=== PATIENT | male | born 1975 | race Caucasian/White ===

== ENCOUNTER 2018-09-15 00:42 | Inpatient (IN) | payer MEDICARE, MEDICAID ==
[~2018-09-15] VITALS: Ht 175.3 cm; Wt 104.8 kg
[~2018-09-15 00:42] MED LIST: CHOLESTYRAMINE378 GM PO; COZAAR100 MG PO; FLUOCINOLO0.01 %/15 TOP; ZOCOR20 MG PO; ZOFRAN ODT4 M1 PO; ZYLOPRIM300 MG PO; ZYRTEC10 M5 PO
[2018-09-15 01:17] VITALS: BP 140/94
[2018-09-15] MEDS ORDERED: ONDANSETRON ODT8 MG PO (01:24)
[2018-09-15] MEDS ORDERED: TOPROL XL25 MG PO (01:25)
[2018-09-15] MEDS ORDERED: NIFEDIPINE ER60 M1 PO (01:25)
[2018-09-15] MEDS ORDERED: MEDROLDOSEPACK PO (01:26)
[2018-09-15] MEDS ORDERED: ZPAK PO (01:26)
[2018-09-15] MEDS ORDERED: OMEPRAZOLE40 MG PO (01:27)
[2018-09-15 01:31] LABS: HEMATOCRIT 49.8 % (42.0-52.0); HEMOGLOBIN 17.2 gm/dL (14.0-18.0); MCH 32.6 pg (26.0-34.0); MCHC 34.5 g/dL (28.0-37.0); MCV 94.6 fL (80.0-100.0); MPV 7.8 fl. (7.2-11.1); NUCLEATED RBCS 0 /100WBC; PLATELET COUNT* 224 thou/uL (150-400); RBC 5.27 mil/uL (4.50-6.00); RDW-CV 13.9 % (10.5-14.5)
[2018-09-15 01:41] LABS: CREATININE 1.3 mg/dL (0.6-1.3); POTASSIUM 3.8 mmol/L (3.5-5.1)
[2018-09-15 01:45] LABS: ALBUMIN 4.2 g/dL (3.4-5.0); TOTAL BILIRUBIN 0.8 mg/dL (<0.1-1.0); TOTAL PROTEIN 7.8 g/dL (6.4-8.2)
[2018-09-15 01:50] LABS: ABSOLUTE LYMPHOCYTES 0.7 thou/uL (0.8-5.3); ABSOLUTE MONOCYTES 0.4 thou/uL (0.0-1.2); ABSOLUTE NEUTROPHILS 12.9 thou/uL (1.6-8.1); PLATELET ESTIMATE ADEQUATE
[2018-09-15 01:59] LABS: URINE BILIRUBIN NEGATIVE (Negative); URINE BLOOD TRACE (Negative); URINE CLARITY CLEAR; URINE COLOR YELLOW; URINE GLUCOSE-RANDOM NEGATIVE (Negative); URINE KETONES TRACE (Negative); URINE LEUKOCYTES-REFLEX NEGATIVE (Negative); URINE NITRITE-REFLEX NEGATIVE (Negative); URINE PROTEIN 1+ (Negative); URINE SPECIFIC GRAVITY 1.025 (1.005-1.030); URINE UROBILINOGEN 0.2 E.U./dl (0.2-1.0)
[2018-09-15 05:25] VITALS: BP 144/96
[2018-09-15 06:35] VITALS: BP 135/96
--- NOTE | 2018-09-15 07:47 | NUR ---
PATIENT ADMITTED TO ROOM 108 ON UNIT AT APPROXIMATELY 0515. PATIENTS MOTHER AT BEDSIDE HELPING TO ANSWER QUESTIONS FOR ADMISSION. PATIENT HAS EXPRESSIVE APHASIA AND HAS DIFFICULTY WITH COMMUNICATION. PATIENTS MOTHER STATED THAT PATIENT USES BRAIL AND TACTILE SIGN LANGUAGE TO COMMUNICATE. PATIENT AND MOTHER WERE ORIENTED TO ROOM AND STAFF. FALL EDUCATION GIVEN AND FALL AGREEMENT SIGNED. ADMISSION AND ASSESSMENT CHARTED. VSS ON RA. PAIN CONTROLLED AT THIS TIME D/T RECEIVING MEDICATION IN ER. PATIENT HAS HAD SOME SLIGHT NAUSEA BUT NO EMESIS. PATIENT URINATING USING URINAL AND ALSO ASSISTED X 1 TO THE BATHROOM. PATIENT IS NPO AT THIS TIME AND SURGERY HAS BEEN CONSULTED IN ER. IV IN RIGHT AC-NS @ 100ML/HR. COTTON BALL TAPED TO CALL LIGHT BUTTON TO ASSIST WHEN NEEDING TO USE CALL LIGHT. FALL PRECAUTIONS IN PLACE AND HOURLY ROUNDS MADE. WILL CONTINUE WITH PLAN OF CARE AND NURSING TO MONITOR.
[2018-09-15 10:30] VITALS: BP 142/100
--- NOTE | 2018-09-15 11:30 | NUR ---
SPOKE WITH PT.AND FATHER. PT.UP IN CHAIR. KEPT DOZING OFF DURING CONVERSATION. PT.IS BOTH DEAF AND BLIND. HE CAN HEAR A LITTLE OUT OF HIS R EAR AND WEARS A HEARING AID. HE LIVES ALONE. FATHER SAID HE HAS SINCE AGE 18. PT. BEGAN TO LOSE SIGHT AT AGE 8 AND WAS BORN HEARING IMPAIRED. HE IS VERY INDEPENDENT. DOES BASICALLY EVERYHTING BUT DRIVE. HIS PARENTS TAKE HIM SHOPPING. HE HAS AN I PHONE THAT IS BLUE TOOTH COMPATIBLE WITH A DEVICE HE WEARS ON HIS WAIST. ALBERTO COMES ACROSS IT TO READ HIS MESSAGES AND IT HAS PATTERSON BOARD FOR HIM TO TYPE HIS RESPONSE. HE GIVES MOTIVATIONAL TALKS ABOUT HIS DISABILITIES AND HOW HE CAN DO ANYTHING SO OTHERS CAN SO TOO IF THEY SET THEIR MINDS TO IT. HE CALLS THE BAD THINGS THAT HAVE HAPPENED TO HIM IN LIFE- SHARKS. HIS TALKS ARE CALLED SWIMMING WITH THE SHARKS. HE DOES SIGN LANGUAGE AND HAS AN RN PRIOR AUTHORIZATION TO DO THE TALKNG FOR HIS TALKS. HE HAS RECENTLY BECAME THE FIRST PERSON QUALIFIED FOR ASSISTANCE BEING BLIND AND DEAF. BEFORE IF YOU WERE BLIND AND DEAF, YOU HAD TO HAVE A MENTAL DISABLITY ALSO. HE SHOULD BE ABLE TO GET ASSISTANCE OF AN AIDE TO ASSIST HIM WITH ERRANDS,APPTS.,ETC. FATHER COULD NOT THINK OF ANYTHING CM COULD PROVIDE TO ASSIST PT. HE SAID PTS MOM WILL BE BRINGING IN HIS PHONE TODAY. CM WILL FOLLOW.
[2018-09-15 15:35] VITALS: BP 138/85
--- NOTE | 2018-09-15 18:12 | NUR ---
PATIENT REMAINED ALERT AND ORIENTED X'S 4. VITAL SIGNS AND SPO2 STABLE. IV CLEAN, FLUIDS INFUSING. PAIN WELL CONTROLLED WITH PAIN MEDS. HAD BOUTS OF NAUSEA, ZOFRAN DID NOT WORKING, GOT IV PHENERGRAN, NAUSEA SUBSIDED, HAS NOT HAD A BOUT OF NAUSEA SINCE PHENERGREN GIVEN. HAVING HICCUPS. VOIDED WITHOUT ISSUE. COMPLETED HOURLY ROUDNING. CALL LIGHT WITHIN REACH.
[2018-09-15 20:00] VITALS: BP 141/91
[2018-09-16] VITALS: BP 151/103
[2018-09-16 04:00] VITALS: BP 120/80
--- NOTE | 2018-09-16 06:48 | NUR ---
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 He has abdominal pain that he rates a 10 mike times. His mom is at the bedside and helps with his communication. He does have some hearing in his right ear and he wears a hearing aide. He's had fentanyl 100 mcg x 3 this shift for the abdominal pain. His abdomen is distended and is hyperactive/tympanic. He is passing gas this shift and has voided large amounts. Mom said he had diarrhea on Wednesday. He states pain is more on his rt side and his ribs. BP has been elevated r/t pain. Roomair sat has been 91-94%. Nausea x 1. He is sleeping in recliner this shift.
[2018-09-16 09:20] VITALS: BP 127/82
[2018-09-16 13:58] LABS: CALCIUM 8.5 mg/dL (8.5-10.1); CREATININE 1.3 mg/dL (0.6-1.3); MAGNESIUM 1.7 mg/dL (1.8-2.4); PHOSPHORUS* 2.9 mg/dL (2.5-4.9); POTASSIUM 3.5 mmol/L (3.5-5.1)
[2018-09-16 17:03] VITALS: BP 115/70
--- NOTE | 2018-09-16 18:32 | NUR ---
ASSUMED CARE OF PATIENT AT APPROX 0730. ALERT AND ORIENTED X4. ASSESSMENT COMPLETED AND CHARTED. VSS ON ROOM AIR. PATIENT HAD COMPLAINTS OF ABDOMINAL PAIN EARLY IN THE SHIFT, GAVE IV PAIN MEDICATION WITH PARTIAL RELIEF. NG TUBE ORDERED AND PLACED, SET ON LOW INTERMITTENT SUCTION WITH 625 OUTPUT BY END OF SHIFT. PATIENT STATES THAT HIS ABDOMINAL PAIN IS BETTER NOW. FLUIDS INFUSED ORDERED. MAG INFUSING ORDERED. FALL PRECAUTIONS IN PLACE. HOURLY ROUNDS COMPLETED. NURSING WILL CONTINUE TO MONITOR.
[2018-09-16 20:00] VITALS: BP 116/61
[2018-09-17 04:06] LABS: ABSOLUTE BASOPHILS 0.1 thou/uL (0.0-0.2); ABSOLUTE EOSINOPHILS 0.1 thou/uL (0.0-0.7); ABSOLUTE LYMPHOCYTES 1.8 thou/uL (0.8-5.3); ABSOLUTE NEUTROPHILS 10.8 thou/uL (1.6-8.1); BASOPHILS 0.7 %; EOSINOPHILS 0.7 %; HEMATOCRIT 49.9 % (42.0-52.0); HEMOGLOBIN 16.9 gm/dL (14.0-18.0); LYMPHOCYTES 13.1 %; MCH 32.2 pg (26.0-34.0); MCHC 33.8 g/dL (28.0-37.0); MCV 95.1 fL (80.0-100.0); MONOCYTES 7.3 %; MPV 8.2 fl. (7.2-11.1); NUCLEATED RBCS 0 /100WBC; PLATELET COUNT* 184 thou/uL (150-400); POLYS 78.2 %; RBC 5.24 mil/uL (4.50-6.00); WBC 13.8 thou/uL (4.0-11.0)
[2018-09-17 04:17] LABS: CALCIUM 8.7 mg/dL (8.5-10.1); CREATININE 1.4 mg/dL (0.6-1.3); POTASSIUM 3.5 mmol/L (3.5-5.1)
--- NOTE | 2018-09-17 06:12 | NUR ---
ASSUMED PATIENT CARE AT 1900. PATIENT ALERT AND ORIENTED TIMES FOUR. NG IN PLACE TO CONTINUOUS SUCTION. 1400 OUT SINCE TUBE PUT IN. PATIENT HAD A SMALL SEMI-FORMED BM THIS AM. IV REMAINS PATENT. MINOR DISCOMFORT NOTED IN ABDOMINAL AREA. HEATING PAD IN PLACE. MOTHER AT BEDSIDE THROUGH THE NIGHT. HELPS STAFF WITH INTERPRETING PATIENTS SPEECH HE IS MOSTLY DEAF AND DOES NOT ALWAYS FORM WORDS PROPERLY. HOURLY ROUNDING AND SALICYLIC ACID BLENDER COMPLETED DOCUMENTED
[2018-09-17 08:15] VITALS: BP 123/84
--- NOTE | 2018-09-17 17:21 | NUR ---
PATIENT REMAINED ALERT AND ORIENTED X'S 4. VITAL SIGNS AND SPO2 STABLE. IV CLEAN, FLUIDS INFUSING. NG CLAMPED, NO NAUSEA OR VOMITING. TOLERATED DIET. PATIENT GIVEN ENEMA, VERY SMALL AMOUNT OF STOOL OUT. ABDOMEN MUCH SOFTER AND LESS DISTENEDED THAN PREVIOUSLY. PATIENT GIVEN BED BATH. PAIN WELL CONTROLLED WITH PAIN MEDS. ALL MORNING MEDS SKIPPED DUE TO PATIENT BEING NPO. COMPLETED HOURLY ROUNDING. CALL LIGHT WITHIN REACH. WILL CONTINUE TO MONITOR.
[2018-09-17 21:14] VITALS: BP 134/82
[2018-09-18 03:50] LABS: HEMATOCRIT 42.5 % (42.0-52.0); MCH 32.7 pg (26.0-34.0); MCHC 34.1 g/dL (28.0-37.0); MCV 95.8 fL (80.0-100.0); MPV 8.1 fl. (7.2-11.1); RBC 4.44 mil/uL (4.50-6.00); RDW-CV 13.9 % (10.5-14.5); WBC 8.9 thou/uL (4.0-11.0)
[2018-09-18 04:10] LABS: HEMOGLOBIN 14.5 gm/dL (14.0-18.0)
[2018-09-18 04:15] LABS: CALCIUM 7.7 mg/dL (8.5-10.1); CREATININE 1.2 mg/dL (0.6-1.3); POTASSIUM 3.2 mmol/L (3.5-5.1)
--- NOTE | 2018-09-18 05:20 | NUR ---
ASSUMED CARE OF PATEINT AT APPROX 1930. ALERT AND OREINTED X4. ASSESSMENT COMPLETED AND CHARTED. VSS ON ROOM AIR. NO COMPLAINTS OF PAIN, NAUSEA, OR SOA. NG REMAINS IN PLACE AND CLAMPED. FLUIDS INFUSED ORDERED. TOLERATING CLEAR LIQUID DIET. UP WIHT SBA TO BEDSIDE COMMODE. SLEPT COMFORTABLY THROUGHOUT THE NIGHT. FALL PRECAUTIONS IN PLACE. CALL LIGHT WITHIN REACH AND USES APPROPRIATELY. FAMILY AT BEDSIDE THROUGHOUT THE NIGHT. HOURLY ROUNDS COMPLETED. NURSING WILL CONTINUE TO MONITOR.
[2018-09-18 08:30] VITALS: BP 143/72
--- NOTE | 2018-09-18 17:35 | NUR ---
PATIENT REMAINED ALERT AND ORIENTED X'S 4. VITAL SIGNS AND SPO2 STABLE. NG TUBE REMOVED. TOLERATED DIET, NO NAUSEA AND VOMITING. PATIENT DRINKING LOTS OF WATER WITHOUT ISSUE. VOIDED AND PASSED BM. K+ WAS LOW, GAVE REPLACEMENT, K+ NOW AT 3.4. GAVE ONE MORE ROUND OF REPLACEMENT BUT HAS NOT HAD A LAB REDRAW YET. PATIENT HAS DENIED PAIN THROUGHOUT SHIFT. COMPLETED HOURLY ROUNDING. CALL LIGHT WITHIN REACH. WILL CONTINUE TO MONITOR.
[2018-09-18 19:50] VITALS: BP 124/74
--- NOTE | 2018-09-19 05:02 | NUR ---
ASSUMED CARE OF PATIENT AT APPROX 1930. ALERT AND ORIENTED X4. ASSESSMENT COMPLETED AND CHARTED. NO COMPLAINTS OF PAIN, NAUSEA, OR SOA. PATEINT TOLERATING LIQUID DIET, HAVING STOOLS AND PASSING GAS. PATIENT UP SBA TO COMMODE. OBSERVED SLEEPING COMFORTABLY IN THE CHAIR ON HOURLY ROUNDS. CALL IGHT WITHIN REACH AND FAMILY ASSISTS WITH CALLING FOR NEEDS. FALL PRECAUTIONS IN PLACE. NURSING WILL CONTINUE TO MONITOR.
[2018-09-19 08:00] VITALS: BP 136/84
--- NOTE | 2018-09-19 14:40 | NUR ---
PT ALERT AND ORIENTED. MOTHER @ BEDSIDE. HR BRADYCARDIC @ 42. COZAAR, METOPROLOL, AND LOSARTIN HELD. PHYSICIAN NOTIFIED. RECEIVED ORDERS TO GIVE LOSARTIN. DENIES NAUSEA AND PAIN. NURSING TO CONTINUE TO MONITOR.
[2018-09-19 15:21] VITALS: BP 136/84
--- NOTE | 2018-09-19 15:47 | EKG ---
[place] [address] ELECTROCARDIOGRAM REPORT Name: HOLLI ALMONTE Room: [address] ADM IN .R.#: [id number] Admission: 09/15/18 Attend Phys: Salome Rocha MD Discharge: Date of : 71 Report #: [id number] THIS REPORT FOR: //name// [facility] Test Date: 2018-09-19 Test Time: 09:34:57 Pat Name: HOLLI ALMONTE Department: Room: [address] Gender: M Student Dean: : 1975 Requested By: Mino Posada Order Number: [id number] Sharan MD: Gary Fournier Measurements Intervals [place] Rate: 39 P: -2 ND: 152 QRS: 74 QRSD: 96 T: 85 QT: 479 QTc: 386 Interpretive Statements Sinus bradycardia Low voltage, extremity leads No previous ECG available for comparison Electronically Signed On 09-19-2018 15:47:23 EDGE PLUGGER by Gary Fournier [email or web address] <ELECTRONICALLY SIGNED> By: Gary Fournier MD, [facility] 09/19/18 1547 0934 3 Gary Fournier MD, FACC /EPI
--- NOTE | 2018-09-19 16:12 | NUR ---
PT WAS SEEN BY CARDIOLOGY AND APPROVED DISCHARGE. DISCHARGE INSTRUCTIONS GIVEN TO PATIENT AND PARENTS AT BEDSIDE. IV REMOVED. PT NOTED TO HAVE BOWEL MOVEMENT TODAY. PT LEFT BY WHEEL CHAIR WITH PERSONAL BELONGINGS TO LEAVE WITH PARENTS BY PRIVATE CAR @ 7718.
--- NOTE | 2018-09-20 08:09 | CON ---
[address] [address] CONSULTATION Name: HOLLI ALMONTE Room: [address] IN M.R.#: [id number] Admission: 09/15/18 Attend Phys: Salome Rocha MD Discharge: 09/19/18 Date of : 71 Report #: [id number] THIS REPORT FOR: //name// CC: HENRIK Rocha Physician staff DATE OF SERVICE: 09/19/2018 HISTORY OF PRESENT ILLNESS: The patient is a 43-year-old white male who I was asked to see in the hospital today after he was noted to be bradycardic. The history is obtained from the chart as well as the patient's father, who is present. 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 He is able to ambulate. He actually wrestled in high school. He has been blind since he was 8 years old. He has multiple medical issues. He is able to ambulate with a cane. He lives by himself. 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 He presented here to the Emergency Room 5 days ago with nausea and vomiting and abdominal pain. He was felt to be having evidence of an acute abdomen. He was found to have evidence of partial small-bowel obstruction. The symptoms resolved. He is now being advanced to full liquids. He was noted to be bradycardic. Cardiology consultation was requested. According to the father, there has been no history of heart problems. He denies being told he had a heart murmur or slow heart rate in the past. He has had no recent lightheadedness, shortness of breath, syncope. PAST MEDICAL HISTORY: He has had previous cholecystectomy, back surgery, cataract extraction. Apparently, in [place] in the past he had pneumonia and had a lung biopsy for possible lung cancer that turned out not to be cancer. He does have a history of high blood pressure. No history of diabetes. MEDICATIONS ON ADMISSION: Included metoprolol, losartan, aspirin. 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 FAMILY HISTORY: His father had coronary artery bypass surgery. SOCIAL HISTORY: He is single. Lives in [place], [place]. No smoking or alcohol abuse. REVIEW OF SYSTEMS: He has no history of stroke, asthma, peptic ulcer disease, liver disease. He had chronic kidney disease, no cancer. No psychiatric illness. No chronic skin condition. PHYSICAL EXAMINATION: GENERAL: Revealed a young white male lying in bed. He appeared in no distress. VITAL SIGNS: Currently, has a blood pressure 130/80, pulse is 50[place] [address] CONSULTATION Name: HOLLI ALMONTE Room: [address]#: [id number] Admission: 09/15/18 Attend Phys: Salome Rocha MD Discharge: 09/19/18 Date of : 71 Report #: [id number] afebrile. HEENT: He is anicteric. Conjunctivae pink. Mucous membranes moist. NECK: Veins do not appear distended. No carotid bruits. Neck supple. CHEST: Clear to auscultation. CARDIAC: Regular bradycardia, no significant murmur. ABDOMEN: Soft. EXTREMITIES: No edema. SKIN: Warm and dry. NEUROLOGIC: Nonfocal. LABORATORY DATA: His ECG on admission from 09/19/2018 showed severe sinus bradycardia at 40 beats per minute, low voltage, no significant ST or T-wave changes. His workup so far, he actually had lab work, sodium 146, creatinine 1.2, potassium 3.4, on admission potassium was 3.7. Liver function studies: Alkaline phosphatase 122. White blood cell count 8.9, hemoglobin 14.5. IMPRESSION AND RECOMMENDATIONS: 1. Sinus bradycardia. Asymptomatic. I would not treat. At this time, I would discontinue metoprolol and continue losartan by itself for hypertension. I would consider checking thyroid function studies. 2. Legally blind. 3. Deaf. 4. Partial small-bowel obstruction. Appears to have resolved. <ELECTRONICALLY SIGNED> By: Gary Fournier MD, FACC 09/20/18 0809 1444 [email or web address] Fournier MD, FACC /nt
== END 2018-09-19 15:48 | disposition home or self-care (01) | DRG 388 ==
LOC: M.ERS 00:42 → M.ORTHSURG 03:55 → M.TBA-ER 03:55 → M.ORTHSURG 05:09
PROVIDERS: Emergency Medicine; Internal Medicine; Surgery; ADMIT Internal Medicine
PROC: 0D9670Z Drainage of Stomach with Drainage Device, Via Natural or Artificial Opening (ICD-10-PCS; principal; 2018-09-16)
DX: K56.600 Partial intestinal obstruction, unspecified as to cause (principal); R65.11 Systemic inflammatory response syndrome (SIRS) of non-infectious origin with acute organ dysfunction; N17.9 Acute kidney failure, unspecified; Q87.89 Other specified congenital malformation syndromes, not elsewhere classified; H54.8 Legal blindness, as defined in USA; H91.90 Unspecified hearing loss, unspecified ear; E83.42 Hypomagnesemia; N18.1 Chronic kidney disease, stage 1; R00.1 Bradycardia, unspecified; H35.52 Pigmentary retinal dystrophy; E87.6 Hypokalemia; Z79.899 Other long term (current) drug therapy; Z90.49 Acquired absence of other specified parts of digestive tract; Q16.5 Congenital malformation of inner ear; Z88.5 Allergy status to narcotic agent; Z82.49 Family history of ischemic heart disease and other diseases of the circulatory system

== ENCOUNTER 2020-06-02 14:35 | Inpatient (IN) | payer MEDICARE, MEDICAID ==
[~2020-06-02] VITALS: Ht 175.3 cm; Wt 103.9 kg
[~2020-06-02 14:35] MED LIST changes: +MEDROLDOSEPACK PO; +NIFEDIPINE ER30 MG PO; +OMEPRAZOLE40 MG PO; +ONDANSETRON ODT8 MG PO; +TOPROL XL25 MG PO; +ZPAK PO
[2020-06-02 14:40] VITALS: BP 141/97
[2020-06-02] MEDS ORDERED: NORCO 5-325 TA1 EAC2 PO (14:47)
[2020-06-02] MEDS ORDERED: BENICAR20 MG PO (14:48)
[2020-06-02] MEDS ORDERED: OMEPRAZOLE40 MG PO (14:48)
[2020-06-02] MEDS ORDERED: CALCITRIOL0.25 MCG PO (14:49)
[2020-06-02] MEDS ORDERED: NIFEDIPINE ER30 MG PO (14:49)
[2020-06-02] MEDS ORDERED: CRESTOR5 MG PO (14:49)
[2020-06-02] MEDS ORDERED: AUGMENTIN 875-1 EACH PO (14:57)
[2020-06-02 14:59] LABS: HEMATOCRIT 53.9 % (42.0-52.0); HEMOGLOBIN 18.5 gm/dL (14.0-18.0); MCH 31.9 pg (26.0-34.0); MCHC 34.3 g/dL (28.0-37.0); MCV 92.9 fL (80.0-100.0); MPV 8.6 fl. (7.2-11.1); NUCLEATED RBCS 0 /100WBC; PLATELET COUNT* 213 thou/uL (150-400); RBC 5.81 mil/uL (4.50-6.00); RDW-CV 14.3 % (10.5-14.5); WBC 17.3 thou/uL (4.0-11.0)
[2020-06-02 15:03] LABS: CALCIUM 9.4 mg/dL (8.5-10.1); CREATININE 1.4 mg/dL (0.6-1.3); POTASSIUM 4.6 mmol/L (3.5-5.1)
[2020-06-02 15:07] LABS: ALBUMIN 4.4 g/dL (3.4-5.0); TOTAL BILIRUBIN 0.8 mg/dL (<0.1-1.0); TOTAL PROTEIN 8.2 g/dL (6.4-8.2)
[2020-06-02 15:30] LABS: ABSOLUTE LYMPHOCYTES 0.9 thou/uL (0.8-5.3); ABSOLUTE MONOCYTES 0.3 thou/uL (0.0-1.2); ABSOLUTE NEUTROPHILS 16.1 thou/uL (1.6-8.1); PLATELET ESTIMATE ADEQUATE
[2020-06-02 15:37] LABS: URINE BILIRUBIN NEGATIVE (Negative); URINE BLOOD TRACE (Negative); URINE CLARITY CLEAR; URINE COLOR YELLOW; URINE GLUCOSE-RANDOM NEGATIVE (Negative); URINE KETONES TRACE (Negative); URINE LEUKOCYTES-REFLEX NEGATIVE (Negative); URINE NITRITE-REFLEX NEGATIVE (Negative); URINE PROTEIN 1+ (Negative); URINE SPECIFIC GRAVITY 1.025 (1.005-1.030); URINE UROBILINOGEN 0.2 E.U./dl (0.2-1.0)
[2020-06-02 17:37] VITALS: BP 146/91
[2020-06-02] MEDS ORDERED: ZYRTEC10 M5 PO (18:15)
[2020-06-02 19:54] VITALS: BP 145/88
[2020-06-02 22:18] VITALS: BP 142/97
[2020-06-03] VITALS: BP 149/98
[2020-06-03 04:00] VITALS: BP 130/89
[2020-06-03 08:00] VITALS: BP 143/84
--- NOTE | 2020-06-03 09:37 | EKG ---
[place] [address] ELECTROCARDIOGRAM REPORT Name: HOLLI ALMONTE Room: [address] ADM IN .R.#: [id number] Admission: 06/02/20 Attend Phys: Ky Powell Discharge: Date of : 71 Date of Service: 06/02/20 1455 Report #: [id number] THIS REPORT FOR: //name// [facility] ED Test Date: 2020-06-02 Test Time: 14:55:39 Pat Name: HOLLI ALMONTE Department: Room: [facility] Gender: M Lsw: : 1975 Requested By: Mandy Luong Order Number: [id number] MD: Gary Fournier Measurements Intervals [place] Rate: 90 P: 39 [place]: 169 QRS: 165 QRSD: 88 T: 39 QT: 377 QTc: 462 Interpretive Statements Sinus rhythm Left posterior fascicular block Low voltage, extremity leads Consider anterior infarct Baseline wander in lead(s) I,II,aVR,aVF Compared to ECG 09/19/2018 09:34:57 Sinus bradycardia no longer present Electronically Signed On 06-03-2020 9:37:02 CDT by Gary Fournier [email or web address] <ELECTRONICALLY SIGNED> By: Gary Fournier MD, FACC 06/03/20 0937 1455 1455 Gary Fournier MD, FAC /EPI
[2020-06-03 12:36] VITALS: BP 127/83
[2020-06-03 17:09] VITALS: BP 146/90
[2020-06-03 20:00] VITALS: BP 131/76
[2020-06-04] VITALS: BP 126/69
[2020-06-04 04:00] VITALS: BP 124/75
[2020-06-04 08:00] VITALS: BP 146/81
[2020-06-04 12:24] VITALS: BP 144/87
[2020-06-04 16:25] VITALS: BP 146/78
[2020-06-04 19:30] VITALS: BP 139/78
[2020-06-05] VITALS: BP 135/77
[2020-06-05 04:00] VITALS: BP 141/78
[2020-06-05 05:08] LABS: ABSOLUTE EOSINOPHILS 0.3 thou/uL (0.0-0.7); ABSOLUTE LYMPHOCYTES 1.8 thou/uL (0.8-5.3); ABSOLUTE MONOCYTES 0.5 thou/uL (0.0-1.2); ABSOLUTE NEUTROPHILS 5.8 thou/uL (1.6-8.1); BASOPHILS 0.6 %; EOSINOPHILS 3.3 %; HEMATOCRIT 40.9 % (42.0-52.0); LYMPHOCYTES 21.4 %; MCH 32.1 pg (26.0-34.0); MCHC 35.2 g/dL (28.0-37.0); MCV 91.1 fL (80.0-100.0); MONOCYTES 6.2 %; MPV 8.5 fl. (7.2-11.1); NUCLEATED RBCS 0 /100WBC; PLATELET COUNT* 158 thou/uL (150-400); POLYS 68.5 %; RBC 4.49 mil/uL (4.50-6.00); RDW-CV 14.1 % (10.5-14.5); WBC 8.4 thou/uL (4.0-11.0)
[2020-06-05 05:19] LABS: HEMOGLOBIN 14.4 gm/dL (14.0-18.0)
[2020-06-05 05:33] LABS: ALBUMIN 3.3 g/dL (3.4-5.0); CALCIUM 8.4 mg/dL (8.5-10.1); CREATININE 1.3 mg/dL (0.6-1.3); MAGNESIUM 1.7 mg/dL (1.8-2.4); POTASSIUM 3.2 mmol/L (3.5-5.1); TOTAL PROTEIN 6.2 g/dL (6.4-8.2)
[2020-06-05 08:00] VITALS: BP 151/87
[2020-06-05] MEDS ORDERED: CEFDINIR300 MG PO (09:12)
[2020-06-05 12:00] VITALS: BP 162/82
[2020-06-05 17:43] VITALS: BP 162/82
[2020-06-05 18:00] VITALS: BP 140/81
== END 2020-06-05 18:20 | disposition home or self-care (01) | DRG 871 ==
LOC: M.ERS 14:35 → M.TBA-ER 16:39 → M.2W 16:39
PROVIDERS: Physician Assistant; ADMIT Internal Medicine; ATTEND Internal Medicine
PROC: 0D9670Z Drainage of Stomach with Drainage Device, Via Natural or Artificial Opening (ICD-10-PCS; principal; 2020-06-04)
DX: A41.9 Sepsis, unspecified organism (principal); N17.0 Acute kidney failure with tubular necrosis; Q87.89 Other specified congenital malformation syndromes, not elsewhere classified; K56.609 Unspecified intestinal obstruction, unspecified as to partial versus complete obstruction; M10.9 Gout, unspecified; I12.9 Hypertensive chronic kidney disease with stage 1 through stage 4 chronic kidney disease, or unspecified chronic kidney disease; N18.30 Chronic kidney disease, stage 3 unspecified; K21.9 Gastro-esophageal reflux disease without esophagitis; E86.0 Dehydration; K52.9 Noninfective gastroenteritis and colitis, unspecified; M81.0 Age-related osteoporosis without current pathological fracture; Z20.828 Contact with and (suspected) exposure to other viral communicable diseases; Z90.49 Acquired absence of other specified parts of digestive tract; Z79.899 Other long term (current) drug therapy; Z88.8 Allergy status to other drugs, medicaments and biological substances; Z88.5 Allergy status to narcotic agent; Q16.5 Congenital malformation of inner ear; Z28.21 Immunization not carried out because of patient refusal